=== PATIENT | female | born 1970 | race American Indian/Alaskan Native ===

== ENCOUNTER 2022-01-30 07:37 | Emergency (ER) | payer OTHER ==
[2022-01-30] MEDS ORDERED: ASPIRIN 325 MG TAB PO NR (09:44)
--- NOTE | 2022-01-30 09:48 | Emergency Department Report ---
ED Chest Pain HPI - General Chief Complaint: Chest Pain Stated Complaint: CHEST PAIN/MIGRAINE/LEFT BACK PAIN Time Seen by Provider: 01/30/22 09:44 Source: patient Mode of arrival: Ambulatory Limitations: No Limitations - History of Present Illness MD Complaint: chest pain Onset: during rest Pain Location: substernal Pain Radiation: none Severity scale (0 -10): 10 Consistency: constant Improves With: nothing Worsens With: nothing re: other (anxiety) Other Symptoms: denies: syncope, rash, acid taste in mouth, leg swelling Treatments Prior to Arrival: none - Related Data Previous Rx's Medication Instructions Recorded Last Taken Type Albuterol Mdi (or & Nicu Only) 1 puff IH Q4-6H PRN #1 inha 01/30/22 Unknown Rx [ProAir HFA Inhaler] Benzonatate [Tessalon Perles] 100 mg PO Q8HR #20 capsule 01/30/22 Unknown Rx predniSONE [Deltasone] 20 mg PO QDAY #5 tab 01/30/22 Unknown Rx Allergies Allergy/AdvReac Type Severity Reaction Status Date / Time morphine AdvReac Severe Swelling Verified 01/30/22 10:14 prasterone (DHEA) AdvReac Severe Swelling Verified 01/30/22 10:14 prochlorperazine AdvReac Severe Shortness Verified 01/30/22 10:14 [From Compazine] of Breath Heart Score - HEART Score History: Slightly suspicious EKG: Normal Age: 45-65 Risk factors: 1-2 risk factors Troponin: 1-3x normal limit HEART Score: 3 - EKG Read Time Time EKG Completed: 09:48 EKG Read Time: 09:59 ED Review of Systems ROS: Stated complaint: CHEST PAIN/MIGRAINE/LEFT BACK PAIN Other details as noted in HPI Comment: All other systems reviewed and negative ED Past Medical Hx - Medications Home Medications: Home Medications Medication Instructions Recorded Confirmed Last Taken Type Albuterol Mdi (or & Nicu Only) 1 puff IH Q4-6H PRN #1 inha 01/30/22 Unknown Rx [ProAir HFA Inhaler] Benzonatate [Tessalon Perles] 100 mg PO Q8HR #20 capsule 01/30/22 Unknown Rx predniSONE [Deltasone] 20 mg PO QDAY #5 tab 01/30/22 Unknown Rx ED Physical Exam - General Limitations: No Limitations General appearance: alert, in no apparent distress - Head Head exam: Present: atraumatic, normocephalic - Eye Eye exam: Present: normal appearance, PERRL, EOMI Pupils: Present: normal accommodation - ENT ENT exam: Present: normal exam, normal orophraynx, mucous membranes moist, TM's normal bilaterally - Neck Neck exam: Present: normal inspection - Respiratory Respiratory exam: Present: normal lung sounds bilaterally. Absent: respiratory distress - Cardiovascular Cardiovascular Exam: Present: regular rate, normal rhythm. Absent: systolic murmur, diastolic murmur, rubs, gallop - GI/Abdominal GI/Abdominal exam: Present: soft, normal bowel sounds - Extremities Exam Extremities exam: Present: normal inspection - Back Exam Back exam: Present: normal inspection - Neurological Exam Neurological exam: Present: alert, oriented X3 - Psychiatric Psychiatric exam: Present: normal affect, normal mood - Skin Skin exam: Present: warm, dry, intact, normal color. Absent: rash ED Course Vital Signs 01/30/22 01/30/22 01/30/22 08:06 09:53 13:49 Temperature 99.8 F H 98.7 F Pulse Rate 110 H 100 H 80 Respiratory 20 18 Rate Blood Pressure 135/91 130/84 [Right] O2 Sat by Pulse 97 98 Oximetry 01/30/22 16:37 Temperature 98.7 F Pulse Rate 98 H Respiratory 16 Rate Blood Pressure 128/84 [Right] O2 Sat by Pulse 96 Oximetry ALPA score - Alpa Score Age > 65: (0) No Aspirin use within the Past 7 Days: (0) No 3 or more CAD Risk Factors: (0) No 2 or more Angina events in past 24 hrs: (0) No Known CAD with more than 50% Stenosis: (0) No Elevated Cardiac Markers: (0) No ST Deviation Greater than 0.5mm: (0) No ALPA Score: 0 ED Medical Decision Making - Lab Data Result diagrams: 01/30/22 09:56 01/30/22 09:56 Critical care attestation.: If time is entered above; I have spent that time in minutes in the direct care of this critically ill patient, excluding procedure time. ED Disposition Clinical Impression: Chest pain Disposition: 01 HOME / SELF CARE / HOMELESS Is pt being admited?: No Does the pt Need Aspirin: No Condition: Stable Instructions: Nonspecific Chest Pain, Adult Additional Instructions: You were evaluated emergency department today for chest pain. 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 Please schedule an appointment for follow-up with your primary care physician as soon as possible. Return to emergency department if you expands worsening uncontrolled chest pain, shortness of breath, lightheadedness, feeling faint, nausea, vomiting or any other concerning symptoms. Be sure to follow-up with your primary care provider as we discussed to get your COVID-19 testing as your symptoms may be related to your COVID-19 encounter Prescriptions: predniSONE [Deltasone] 20 mg PO QDAY #5 tab Albuterol Mdi (or & Nicu Only) [ProAir HFA Inhaler] 1 puff IH Q4-6H PRN #1 inha PRN Reason: Cough Benzonatate [Tessalon Perles] 100 mg PO Q8HR #20 capsule Referrals: CARLOS MARSHALL MD [Primary Care Provider] - 3-5 Days
[2022-01-30] MEDS ORDERED: LORazepam 2 MG/ML VIAL IM STA (10:00)
[2022-01-30 10:55] LABS: Basophils % (Auto) 0.5 % (0.0-1.8); Eosinophils % (Auto) 0.5 % (0.0-4.3); Hematocrit 39.1 % (30.3-42.9); Hemoglobin 13.1 gm/dl (10.1-14.3); Lymphocytes # (Auto) 0.6 K/mm3 (1.2-5.4); Lymphocytes % (Auto) 8.1 % (13.4-35.0); Mean Corpuscular HGB Conc 34 % (30-34); Mean Corpuscular Volume 85 fl (79-97); Monocytes # (Auto) 0.8 K/mm3 (0.0-0.8); Monocytes % (Auto) 11.2 % (0.0-7.3); Platelet Count 323 K/mm3 (140-440); Red Blood Count 4.59 M/mm3 (3.65-5.03); Red Cell Distribution Width 14.1 % (13.2-15.2)
[2022-01-30 11:03] LABS: Alanine Aminotransferase 11 units/L (7-56); Albumin 4.4 g/dL (3.9-5); Blood Urea Nitrogen 11 mg/dL (7-17); Calcium 9.6 mg/dL (8.4-10.2); Hemolysis Index 5
[2022-01-30 11:06] LABS: BUN/Creatinine Ratio 16
--- NOTE | 2022-01-30 11:08 | XRay Report ---
CHEST 2 VIEWS INDICATION / CLINICAL INFORMATION: Chest Pain. COMPARISON: None available. FINDINGS: SUPPORT DEVICES: None. HEART / MEDIASTINUM: No significant abnormality. LUNGS / PLEURA: No significant pulmonary or pleural abnormality. No pneumothorax. ADDITIONAL FINDINGS: No significant additional findings. IMPRESSION: 1. No acute findings. Signer Name: Umesh Alejandro Jr, MD Signed: 01/30/2022 11:04 AM Workstation Name: [id number]
--- NOTE | 2022-01-30 11:24 | Electrocardiograph Report ---
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
[2022-01-30] MEDS ORDERED: oxyCODONE /ACETAMINOPHEN 5-325MG TAB PO ONE (13:54)
[2022-01-30 16:30] LABS: Amphetamine Screen,Urine Negative; Benzodiazepines Screen,Urine Negative; Cannabinoid Screen,Urine Negative; Cocaine Screen,Urine Negative; Methadone Screen,Urine Negative; Opiate Screen,Urine Negative
[2022-01-30 18:33] VITALS: BP 126/92
== END 2022-01-30 18:32 | disposition home or self-care (01) ==
LOC: ED 07:37
DX: R07.89 Other chest pain (principal); Z88.5 Allergy status to narcotic agent; Z88.8 Allergy status to other drugs, medicaments and biological substances; Z79.899 Other long term (current) drug therapy
CPT/HCPCS: 36415; 71046; 80053; 80307; 83690; 84484; 85025; 93005; 96372; 99284; J2060